=== PATIENT | male | born 1965 | race Two or more races ===

== ENCOUNTER 2024-08-17 09:55 | Day surgery (SDC) | payer BC ==
[~2024-08-17] VITALS: Ht 180.3 cm; Wt 106.6 kg
[~2024-08-17 09:55] MED LIST: AMOX500T86 PO; HYDR1TAB97 PO; OLME-49 OR
[2024-08-17] MEDS ORDERED: fentaNYL CITRATE 100 MCG/2 ML VL ONE ×2 (11:39→12:24)
[2024-08-17] MEDS ORDERED: KETAMINE 50mg/ML 10ml Vial 0 ML ONE (11:40)
[2024-08-17] MEDS ORDERED: MIDAZOLAM HCL 2MG/2ML 2ml VIAL (1mg/ml) ONE (11:40)
[2024-08-17] MEDS ORDERED: PROPOFOL 10 MG/ML 20 ML IV ONE ×2 (11:40→11:42)
[2024-08-17] MEDS ORDERED: KETAMINE 50mg/ML 1ml syringe ONE (11:41)
[2024-08-17] MEDS ORDERED: DexAMETHasone SOD PHOS 10MG/1ML VIAL INJ ONE (11:42)
[2024-08-17] MEDS ORDERED: SUGAMMADEX 200mg/2ml Vial (100MG/ML) IV ONE ×2 (11:42→13:34)
[2024-08-17] MEDS ORDERED: LIDOCAINE 2% (LOCAL ANESTH.) PF 5ml SDV ONE (11:42)
[2024-08-17] MEDS ORDERED: ONDANSETRON HCL 4 MG/2 ML VIAL ONE (11:42)
[2024-08-17] MEDS ORDERED: ceFAZolin 1GM VL ONE (11:42)
[2024-08-17] MEDS ORDERED: ROCURONIUM 10MG/ML 10ML VIAL IV ONE (11:45)
[2024-08-17] MEDS: ceFAZolin 1GM/50ML 100 ML IV ONE (11:45)
[2024-08-17] MEDS ORDERED: PHENYLEPHRINE HCL 10 MG/ML VL ONE (11:49)
[2024-08-17] MEDS ORDERED: TRANEXAMIC ACID 10 ML ONE (12:07)
[2024-08-17] MEDS ORDERED: KETOROLAC TROMETH 30 MG/ML 1ML VIAL ONE (12:49)
[2024-08-17] MEDS ORDERED: EPINEPHrine HCL 1 MG/1 ML AMP ONE (12:51)
[2024-08-17 13:50] VITALS: PULSE 112; RESP 12; O2SAT 97
[2024-08-17] MEDS ORDERED: HYDROmorphone HCL 2 MG/ML VL/or syr IV PRN ×2 (14:00)
[2024-08-17] MEDS ORDERED: ONDANSETRON HCL 4 MG/2 ML VIAL IV ONE (14:00)
[2024-08-17] MEDS: TRANEXAMIC ACID 0 ML ONE (14:21)
[2024-08-17] MEDS: HYDROmorphone HCL 2 MG/ML VL/or syr IV PRN (14:21)
[2024-08-17] MEDS: ROPIVACAINE 0.5% (5MG/ML) 20ML AMPULE IJ ONE (14:22)
--- NOTE | 2024-08-17 19:35 | DVH ---
EXAM: XY R TIB FIB XRAY, XY C ARM FLUOROSCOPY UP TO 60MIN HISTORY: RT TIB FIB REPAIR TECHNIQUE: Intraoperative radiographs of the right tibia and fibula were obtained. FLUOROSCOPY TIME: 87.1 seconds FLUOROSCOPY IMAGES: 5 TOTAL DOSE: 4.11 mGy COMPARISON: None FINDINGS/IMPRESSION: Refer to intraoperative report for further evaluation.
--- NOTE | 2024-08-20 19:03 | DVHOP2 ---
Operative Report - 2 Report Details Date: 08/17/24 Preop Diagnosis: displaced right tibia shaft fracture/ proximal fibula fracture Postop Diagnosis: as above Surgeon: Jaya Grimm MD/ Ludwin Madrid MD Graphics Editor: Noman BROOKS Anesthesiologist: Lalita Anesthesia: Regional Implant: Supra Patella Jose Francisco Tibia nail Consent: The patient was informed of the risks and benefits of the procedure. These include but are not limited to complications of anesthesia, postoperative infection, incomplete relief of symptoms, recurrence of symptoms, damage to blood vessels, nerves and tendons, deep venous thrombosis, pulmonary embolism and possible need for repeat surgery in the future. Estimated Blood Loss: 20 cc Name of Procedure Performed Open reduction internal fixation of right tibia fracture, intraop fluoro Procedure Details Procedure Details: In the preoperative holding area, the consent was reviewed and the appropriate extremity was verified by the patient and marked with my initials. The patient was then transferred to the operating theatre. Appropriate anesthesia was induced. All bony prominences were well padded. A time out was performed verifying the side and site of surgery according to standard protocol. Preoperative antibiotics were given. Risks/benefits/options and alternatives were reviewed in depth with patient and his girlfriend. Patient and family understand this. Risks include but not limited to bleeding, infection, nerve injury, hardware failure, malunion, nonunion, chronic pain, stiffness, amputation, deep venous thrombosis and . A right pneumatic thigh tourniquet was placed about the patient's thigh. The lower extremity was then scrubbed, prepped and draped in the usual aseptic manner. The lower extremity was elevated and exsanguinated using an Esmarch bandage. The tourniquet was then inflated. Attention was then directed to the standard suprapatella tibial nail technique. We made a 4 cm incision over the quadirceps tendon, paratenon was split with layer kept intact, quad was split. Using fluoro, we had correct start point with our entry pin on AP and lateral xray. We then put our starter reamer in place. We used manual reduction techniques in addition to to multiple stab incision at fracture site to help the reduction as she has a spiral fracture. We gentle reamed and placed a tibial nail. We did a static screw and locking screw proximally fluroscopy. Screws were deemed proper length. We then locked our tibia nail distally. The tourniquet was deflated and prompt hemostasis was achieved. Local injection of lidocaine and marcaine plain was injected. The area was then copiously flushed with normal sterile saline and closed in a layered fashion utilizing 2-0 Vicryl and a 3-0 nylon. Dressings were then applied consisting of Adaptic, 4 x 4s, Cristian, Kerlix and sterile Webril. Next, a multi-layer dressing consisting of cast padding and Awais bandages were placed about to the patient's left leg distal to the patient's knee. A 5 inch posterior fiberglass splint was placed along the patient's posterior right leg with care taken to keep the foot at 90 degrees. Also, a U- shaped 4-inch fiberglass splint was placed from medial to lateral in a stirrup fashion for additional support. Additional Awais bandages were placed over the fiberglass splint to keep them in place. Condition Good Disposition Still a Patient LUDWIN MADRID MD Aug 20, 2024 19:03
== END 2024-08-17 13:50 | disposition home or self-care (01) ==
LOC: SUR 09:55
PROVIDERS: ATTEND Orthopaedic Surgery Adult Reconstructive Orthopaedic Surgery
DX: S82.241A Displaced spiral fracture of shaft of right tibia, initial encounter for closed fracture (principal); I10 Essential (primary) hypertension; Z96.642 Presence of left artificial hip joint; Z79.899 Other long term (current) drug therapy; Z98.890 Other specified postprocedural states; X58.XXXA Exposure to other specified factors, initial encounter; Y93.89 Activity, other specified; Y92.89 Other specified places as the place of occurrence of the external cause; Y99.8 Other external cause status
CPT/HCPCS: 27759; 73590; C1713; C1769; J0171; J0690; J1100; J1171; J1885; J2003; J2250; J2371; J2405; J2704; J2795; J3010; 76000